=== PATIENT | female | born 1975 | race Caucasian/White ===

== ENCOUNTER 2017-10-09 15:10 | Emergency (ER) | payer BC ==
[2017-10-09 15:17] VITALS: TEMP 36.5; Ht 162.6 cm
[2017-10-09 16:02] VITALS: BP 159/92; PULSE 71; O2SAT 96
--- NOTE | 2017-10-09 16:55 | EMERGENCY ROOM VISIT NOTE ---
History First contact with patient: 15:22 Chief Complaint: FOOT PAIN Stated Complaint: RIGHT FOOT HURTS, CAN'T STAND ON IT History of Present Illness The patient is a 42 year old female who presents to the Emergency Room with complaints of right foot pain that is worsened with ambulation. The patient reports that she and her family are currently traveling from [place] across several states in the [facility] for vacation. The patient reports that she has been doing a moderate amount of walking, but has not noticed any sudden onset of pain. She also has not noticed any swelling or bruising of the foot. Weightbearing worsens her pain to an 8 out of 10. The patient denies any prior history of right foot injuries. She currently denies any pain extending into the Achilles tendon, calf, knee or thigh. She denies history of back problems. She does admit to a history of frequent leg cramps. Review of Systems 10 system review was performed and was negative except for pertinent positives and negatives as indicated in history of present illness Past Medical/Surgical History Medical Problems: (1) No significant past medical history Surgical Problems: (1) No history of previous surgery Family History Unremarkable Social History Smoking Status: Never Smoker Alcohol Use: none Marital Status: Housing Status: lives with family Occupation Status: employed Physical Exam Vital Signs Date Time Temp Pulse Resp B/P (MAP) Pulse Ox O2 Delivery O2 Flow Rate FiO2 10/09/17 16:02 71 18 159/92 96 Room Air 10/09/17 15:17 36.5 79 18 164/114 100 Room Air Physical Exam CONSTITUTIONAL: Healthy and well nourished. Alert and oriented X 3 with positive affect. Patient appears in mild to moderate discomfort. HEENT: Normocephalic, atraumatic. Pupils equal, round and reactive. NECK: Full active range of motion without discomfort. RESPIRATORY: Clear to auscultation bilaterally with no wheezing, crackles, rhonchi or stridor. CARDIOVASCULAR: Regular rate and rhythm with no murmurs, rubs or gallops. MUSCULOSKELETAL: Examination of the right foot does not show any obvious soft tissue edema or ecchymosis. She has generalized tenderness to palpation across the dorsum of the foot. No significant worsening pain with subtalar motion. She has no focal tenderness to palpation through the calcaneus, Achilles tendon or calf. Pedal pulses are intact. Capillary refill is less than 2 seconds. INTEGUMENTARY: No rash or other significant dermatologic conditions noted. NEUROLOGIC: Right foot and toes are sensory intact. Medical Decision & Procedures ED Course Patient history and physical exam were performed. Nurse's notes were reviewed. Vital signs were reviewed, showing an elevated blood pressure 164/114. The patient appears in moderate discomfort. I discussed several different etiologies with both the patient and , including the risk for a stress fracture, tendinitis, sprain or cramping. I did explain risk for DVT, however because the patient does not have any discomfort within the leg or thigh, I do not suspect that this is a DVT. I did offer to perform x-rays and ultrasound studies, but the patient deferred. With continued shared medical decision making, the patient was dispensed crutches and a short fracture boot that she can use to help with ambulation. I did encourage resting the foot as much as possible, intermittently applying ice and elevating the foot as needed for pain and swelling. She was encouraged to follow-up with her PCP upon return home if her symptoms persist. The patient was happy with plan of care, refused any analgesics while in the emergency department, and rated her discomfort a 5 out of 10 at the conclusion of my exam. I did encourage the patient to have her blood pressure rechecked with her PCP as it was elevated in the emergency department. Medical Decision Medication Reconcilliation Current Medication List: was personally reviewed by me Blood Pressure Screening Patient's blood pressure: Elevated blood pressure Blood pressure disposition: Elevated BP felt to be situational Impression Primary Impression: Right foot strain Additional Impression: Elevated blood pressure reading Departure Information Dispostion Home / Self-Care Condition GOOD Referrals No Doctor, Assigned (PCP) Forms HOME CARE DOCUMENTATION FORM, IMPORTANT VISIT INFORMATION Patient Instructions [employer] Additional Instructions Intermittently apply ice and elevate foot for swelling and pain. Ibuprofen 800 mg and/or Tylenol 1000 mg every 8 hours. You may also alternate these medications for more effective pain relief: Ibuprofen --4 HRS--> Tylenol --4 HRS--> ibuprofen --4 HRS--> Tylenol .... Use walking boot as provided and/or crutches as needed for additional pain relief. Follow-up with your family doctor upon return home if symptoms are not improving. Problem Qualifiers Primary Impression: Right foot strain Encounter type: initial encounter Qualified Codes: S96.911A - Strain of unspecified muscle and tendon at ankle and foot level, right foot, initial encounter
== END 2017-10-09 16:04 | disposition home or self-care (01) ==
LOC: C.EDB 15:12 → C.EDD 16:04
DX: S96.911A Strain of unspecified muscle and tendon at ankle and foot level, right foot, initial encounter (principal); R03.0 Elevated blood-pressure reading, without diagnosis of hypertension; X58.XXXA Exposure to other specified factors, initial encounter